=== PATIENT | male | born 1980 | race Two or more races ===

== ENCOUNTER 2019-02-14 16:06 | Emergency (ER) | payer OTHER, BC ==
[~2019-02-14] VITALS: Ht 188 cm; Wt 108.9 kg
[2019-02-14] MEDS ORDERED: BENADRYL25 MG PO (16:26)
== END 2019-02-14 17:57 | disposition home or self-care (01) ==
LOC: ED 16:06
DX: T63.441A Toxic effect of venom of bees, accidental (unintentional), initial encounter (principal)
CPT/HCPCS: 99282; Q0163